=== PATIENT | female | born 1985 | race Caucasian/White ===

== ENCOUNTER 2024-03-25 02:12 | Emergency (ER) | payer BC, OTHER ==
[~2024-03-25] VITALS: Ht 170.2 cm; Wt 113.0 kg
[2024-03-25 02:21] VITALS: O2SAT 98
[2024-03-25] MEDS ORDERED: SODIUM CHLORIDE 0.9% 1,000 ML IV ONE (02:30)
[2024-03-25] MEDS: ZIPRASIDONE MESYLATE 20MG/VIAL IM ONE (02:45)
[2024-03-25 03:51] LABS: HEMATOCRIT. 41.9 % (36.0-48.0); HEMOGLOBIN. 13.9 g/dL (12.0-16.0); MEAN CORPUSCULAR HEMOGLOBIN 30.1 pg (28.0-32.0); MEAN CORPUSCULAR HGB CONC 33.3 g/dL (31.0-37.0); MEAN CORPUSCULAR VOLUME 90.4 fL (81.0-99.0); MEAN PLATELET VOLUME 8.2 fl (7.4-10.4); PLATELET 223 x1000/uL (130-400); RED BLOOD CELL COUNT 4.63 mill/uL (4.2-5.4); RED CELL DISTRIBUTION WIDTH 13.3 % (11.6-14.6); WHITE BLOOD COUNT 22.8 x1000/uL (4.5-11.0)
[2024-03-25 04:01] LABS: CHLORIDE 109 mEq/L (98-107); POTASSIUM 3.5 mEq/L (3.5-5.1); SODIUM 141 mEq/L (136-145)
[2024-03-25 04:02] LABS: CARBON DIOXIDE 19 mEq/L (21-32)
[2024-03-25 04:03] LABS: CALCIUM 9.8 mg/dL (8.7-10.4)
[2024-03-25 04:07] LABS: CREATININE 1.1 mg/dL (0.6-1.0); GLUCOSE 79 mg/dL (70-105); UREA NITROGEN BLOOD 13 mg/dL (9-23)
[2024-03-25 04:08] LABS: ETHANOL BLOOD < 10 mg/dL (<10)
[2024-03-25 04:09] LABS: ACETAMINOPHEN < 2 ug/mL (10-30)
[2024-03-25 04:33] LABS: DIFFERENTIAL COMMENT 1
[2024-03-25 07:15] LABS: *AMPHETAMINES SCREEN URINE PRESUMPTIVE POSITIVE (NEGATIVE); *BENZODIAZEPINES SCREEN URINE PRESUMPTIVE POSITIVE (NEGATIVE); *COCAINE SCREEN URINE NEGATIVE (NEGATIVE); ECSTASY MDMA SCREEN URINE NEGATIVE (NEGATIVE); METHADONE URINE SCREEN NEGATIVE (NEGATIVE); OPIATES URINE SCREEN NEGATIVE (NEGATIVE); PHENCYCLIDINE URINE SCREEN NEGATIVE (NEGATIVE)
[2024-03-25 07:20] LABS: PLATELET ESTIMATE NORMAL
[2024-03-25 07:54] VITALS: BP 125/72; PULSE 98; RESP 17; TEMP 98.2
[2024-03-25 09:57] LABS: *BARBITURATES SCREEN URINE NEGATIVE (NEGATIVE); CANNABINOID URINE SCREEN PRESUMPTIVE POSITIVE (NEGATIVE)
== END 2024-03-25 07:57 | disposition home or self-care (01) ==
LOC: ER 02:12
DX: R41.82 Altered mental status, unspecified (principal); F12.90 Cannabis use, unspecified, uncomplicated
CPT/HCPCS: 80305; 80048; 80307; 80329; 80320; 85025; 36415; 96372; 99283; J3486; J7030; G0480